=== PATIENT | female | born 1970 | race Caucasian/White ===

== ENCOUNTER 2020-08-31 10:12 | Outpatient (CLI) | payer OTHER | END 2020-08-31 10:13 | disposition home or self-care (01) | LOC: CSHWCC 10:12 | PROVIDERS: ATTEND Nurse Practitioner Family | DX: T25.221D Burn of second degree of right foot, subsequent encounter (principal); E78.2 Mixed hyperlipidemia; G89.29 Other chronic pain; G90.09 Other idiopathic peripheral autonomic neuropathy; I10 Essential (primary) hypertension; X19.XXXD Contact with other heat and hot substances, subsequent encounter | CPT/HCPCS: 11042; 99212; G0463 ==

== ENCOUNTER 2020-09-14 10:51 | Outpatient (CLI) | payer OTHER | END 2020-09-14 10:52 | disposition home or self-care (01) | LOC: CSHWCC 10:51 | PROVIDERS: ATTEND Nurse Practitioner Family | DX: T25.221D Burn of second degree of right foot, subsequent encounter (principal); E78.2 Mixed hyperlipidemia; G89.29 Other chronic pain; G90.09 Other idiopathic peripheral autonomic neuropathy; I10 Essential (primary) hypertension; X19.XXXD Contact with other heat and hot substances, subsequent encounter | CPT/HCPCS: 11042; 99212; G0463 ==

== ENCOUNTER 2020-09-28 12:35 | Outpatient (CLI) | payer OTHER | END 2020-09-28 12:36 | disposition home or self-care (01) | LOC: CSHWCC 12:35 | PROVIDERS: ATTEND Nurse Practitioner Family | DX: T25.221D Burn of second degree of right foot, subsequent encounter (principal); E78.2 Mixed hyperlipidemia; G89.29 Other chronic pain; G90.09 Other idiopathic peripheral autonomic neuropathy; I10 Essential (primary) hypertension; X19.XXXD Contact with other heat and hot substances, subsequent encounter | CPT/HCPCS: 29445; 99212; G0463 ==

== ENCOUNTER 2020-09-30 11:46 | Outpatient (CLI) | payer OTHER | END 2020-09-30 11:47 | disposition home or self-care (01) | LOC: CSHWCC 11:46 | PROVIDERS: ATTEND Nurse Practitioner Family | DX: T25.221D Burn of second degree of right foot, subsequent encounter (principal); E78.2 Mixed hyperlipidemia; G90.09 Other idiopathic peripheral autonomic neuropathy; G89.29 Other chronic pain; I10 Essential (primary) hypertension; X19.XXXD Contact with other heat and hot substances, subsequent encounter | CPT/HCPCS: 99212; G0463 ==

== ENCOUNTER 2020-10-05 11:35 | Outpatient (CLI) | payer OTHER | END 2020-10-05 11:36 | disposition home or self-care (01) | LOC: CSHWCC 11:35 | PROVIDERS: ATTEND Nurse Practitioner Family | DX: T25.221D Burn of second degree of right foot, subsequent encounter (principal); E78.2 Mixed hyperlipidemia; G89.29 Other chronic pain; G90.09 Other idiopathic peripheral autonomic neuropathy; I10 Essential (primary) hypertension; X19.XXXD Contact with other heat and hot substances, subsequent encounter | CPT/HCPCS: 99212; G0463 ==

== ENCOUNTER 2020-10-26 09:02 | Outpatient (CLI) | payer OTHER | END 2020-10-26 09:03 | disposition home or self-care (01) | LOC: CSHWCC 09:02 | PROVIDERS: ATTEND Nurse Practitioner Family | DX: T25.221D Burn of second degree of right foot, subsequent encounter (principal); E78.2 Mixed hyperlipidemia; G89.29 Other chronic pain; G90.09 Other idiopathic peripheral autonomic neuropathy; I10 Essential (primary) hypertension; X19.XXXD Contact with other heat and hot substances, subsequent encounter ==

== ENCOUNTER 2021-01-25 10:12 | Outpatient (CLI) | payer OTHER | END 2021-01-25 10:13 | disposition home or self-care (01) | LOC: CSHWCC 10:12 | PROVIDERS: ATTEND Nurse Practitioner Family | DX: T25.221D Burn of second degree of right foot, subsequent encounter (principal); E78.2 Mixed hyperlipidemia; G89.29 Other chronic pain; G90.09 Other idiopathic peripheral autonomic neuropathy; I70.203 Unspecified atherosclerosis of native arteries of extremities, bilateral legs; I10 Essential (primary) hypertension; X19.XXXD Contact with other heat and hot substances, subsequent encounter | CPT/HCPCS: 11042; 99212; G0463 ==

== ENCOUNTER 2021-02-01 10:22 | Outpatient (CLI) | payer OTHER | END 2021-02-01 10:23 | disposition home or self-care (01) | LOC: CSHWCC 10:22 | PROVIDERS: ATTEND Nurse Practitioner Family | DX: T25.221D Burn of second degree of right foot, subsequent encounter (principal); E78.2 Mixed hyperlipidemia; G89.29 Other chronic pain; G90.09 Other idiopathic peripheral autonomic neuropathy; I10 Essential (primary) hypertension; I70.203 Unspecified atherosclerosis of native arteries of extremities, bilateral legs; X19.XXXS Contact with other heat and hot substances, sequela | CPT/HCPCS: 29445; 99212; G0463 ==

== ENCOUNTER 2021-04-15 11:04 | Outpatient (CLI) | payer OTHER | END 2021-04-15 11:05 | disposition home or self-care (01) | LOC: CSHWCC 11:04 | PROVIDERS: ATTEND Nurse Practitioner Family | DX: T25.221D Burn of second degree of right foot, subsequent encounter (principal); I70.203 Unspecified atherosclerosis of native arteries of extremities, bilateral legs; G90.09 Other idiopathic peripheral autonomic neuropathy; G89.29 Other chronic pain; E78.2 Mixed hyperlipidemia; I10 Essential (primary) hypertension; X19.XXXD Contact with other heat and hot substances, subsequent encounter | CPT/HCPCS: 99212; G0463 ==

== ENCOUNTER 2021-05-18 15:15 | Outpatient (CLI) | payer OTHER | END 2021-05-18 15:16 | disposition home or self-care (01) | LOC: CSHWCC 15:15 | PROVIDERS: ATTEND Nurse Practitioner Family | DX: T25.221D Burn of second degree of right foot, subsequent encounter (principal); I70.203 Unspecified atherosclerosis of native arteries of extremities, bilateral legs; E78.2 Mixed hyperlipidemia; G89.29 Other chronic pain; G90.09 Other idiopathic peripheral autonomic neuropathy; I10 Essential (primary) hypertension; X19.XXXD Contact with other heat and hot substances, subsequent encounter | CPT/HCPCS: 11042 ==

== ENCOUNTER 2021-06-02 15:32 | Outpatient (CLI) | payer OTHER | END 2021-06-02 15:33 | disposition home or self-care (01) | LOC: CSHWCC 15:32 | PROVIDERS: ATTEND Nurse Practitioner Family | DX: T25.221A Burn of second degree of right foot, initial encounter (principal); E78.2 Mixed hyperlipidemia; G89.29 Other chronic pain; G90.09 Other idiopathic peripheral autonomic neuropathy; I10 Essential (primary) hypertension; I70.203 Unspecified atherosclerosis of native arteries of extremities, bilateral legs; X19.XXXS Contact with other heat and hot substances, sequela | CPT/HCPCS: 11042; 99212; G0463 ==